=== PATIENT | female | born 1990 | race Caucasian/White ===

== ENCOUNTER 2020-04-02 12:11 | Outpatient (CLI) | payer BC ==
--- NOTE | 2020-04-02 13:31 | MRI ---
MRI LUMBAR SPINE NONCONTRAST: DATE: 04/02/2020 HISTORY: 29-year-old female with lumbar radiculopathy COMPARISON: None FINDINGS: There are transitional levels at thoracolumbar junction and lumbosacral junction. For the purposes of this report, the level with accessory left rib will be designated as L1. Level of greatest lordotic angulation will be designated as L5-S1, and there will be considered to be a slightly partia lly lumbarized S1. Vertebral body heights are maintained. The bone marrow signal from T12 through L3 are normal. Alignment is normal. Conus medullaris terminates at L1-2. No high-grade facet DJD at a ny level. T12-L1:Normal L1-2:Normal L2-3:Normal L3-4:Essentially normal. L4-5:Mild to moderate disc space narrowing. Disc desiccation. Modic type I and type II endplate marro w changes. Diffuse mild disc bulge. Superimposed shallow, broad-based central, bilateral paracentral, and bilateral lateral disc herniation indents the ventral aspect of thecal sac, abutting right L5 nerve root. Despite this, there is no high-grade central spinal canal stenosis. No high-grade neural foraminal stenosis. L5-S1:Minimal disc space narrowing. Diffuse disc bulge plus superimposed small focal central and bila teral paracentral disc herniation which abuts the ventral surface of thecal sac, but does not impinge on nerve roots. No central spinal canal stenosis or significant neural foraminal stenosis. IMPRESSION: 1) transitional levels at thoracolumbar junction and lumbosacral junction. 2.) Mild-moderate disc disease at the lowest 2 levels. 3) no high-grade central spinal canal stenosis, high-grade neural foraminal stenosis, or joann nerve root compression, at any level.
== END 2020-04-02 12:12 | disposition home or self-care (01) ==
LOC: SCSMRI 12:11
PROVIDERS: ATTEND Neurological Surgery
DX: M51.16 Intervertebral disc disorders with radiculopathy, lumbar region (principal); M54.5 Low back pain; Q76.49 Other congenital malformations of spine, not associated with scoliosis
CPT/HCPCS: 72148